=== PATIENT | female | born 1985 | race Caucasian/White ===

== ENCOUNTER 2017-01-15 22:49 | Inpatient (IN) | payer MEDICAID ==
[~2017-01-15 22:49] MED LIST: ANUSOL-HC30 G1 RC; COLACE100 M1 PO; COLACE100 MG PO; DIBUCAINE EXT; DIBUCAINE28.35 GM TP; FERROUS SULFATE1 GM MC; IBUPROFEN600 MG PO; IBUPROFEN800 M1 PO; IRON1 TA1 PO; MILK OF MAGNESIA PO; MOTRIN800 MG PO; OXYCODONE/APAP PO; PRENATAL TABLE1 EAC3 PO; PRENATAL1 EACH PO; PROCTO PAK RC; TUMS200 MG PO; VALTREX500 MG PO
[2017-01-16 00:07] LABS: BASO % 0.1 % (0-2); HCT-HEMATOCRIT 32.9 % (34.0-49.0); HGB-HEMOGLOBIN 11.1 gm/dl (12.0-15.5); IMMATURE GRANULOCYTES ABSOLUTE 0.09 tho/cmm (0-0.03); IMMATURE GRANULOCYTES PERCENT 0.5 % (0-0.3); LYMPH % 8.5 % (20-45); LYMPH ABSOLUTE COUNT 1.5 tho/cmm (0.8-4.5); MCH (MEAN CORPUSCULAR HGB) 30.7 pg (28.0-32.0); MCHC MEAN CORPUSCULAR HGB CONC 33.7 % (32.0-36.0); MCV (MEAN CELL VOLUME) 91.1 fl (82.0-96.0); MONO % 3.8 % (0-12); MONOCYTE ABSOLUTE COUNT 0.7 tho/cmm (0.0-1.2); NEUTROPHIL ABSOLUTE COUNT 15.3 tho/cmm (1.6-8.0); NEUTROPHIL-AUTOMATED 15.3 tho/cmm (1.6-8.0); NEUTROPHILS % 87.1 % (40-80); PLATELET COUNT 247 tho/cmm (150-450); RED BLOOD COUNT 3.61 mil/cmm (4.00-5.20); RED CELL DISTRIBUTION WIDTH 13.2 % (12.4-16.4); WHITE BLOOD COUNT 17.6 tho/cmm (4.0-10.0)
[2017-01-16] MEDS ORDERED: NO HOME MEDICATION XX (05:50)
[2017-01-17 06:01] LABS: BASO % 0.3 % (0-2); EOS % 0.2 % (0-7); HCT-HEMATOCRIT 27.8 % (34.0-49.0); HGB-HEMOGLOBIN 9.4 gm/dl (12.0-15.5); IMMATURE GRANULOCYTES ABSOLUTE 0.08 tho/cmm (0-0.03); IMMATURE GRANULOCYTES PERCENT 0.8 % (0-0.3); LYMPH % 22.3 % (20-45); LYMPH ABSOLUTE COUNT 2.3 tho/cmm (0.8-4.5); MCH (MEAN CORPUSCULAR HGB) 31.2 pg (28.0-32.0); MCHC MEAN CORPUSCULAR HGB CONC 33.8 % (32.0-36.0); MCV (MEAN CELL VOLUME) 92.4 fl (82.0-96.0); MONO % 6.1 % (0-12); MONOCYTE ABSOLUTE COUNT 0.6 tho/cmm (0.0-1.2); NEUTROPHIL ABSOLUTE COUNT 7.1 tho/cmm (1.6-8.0); NEUTROPHIL-AUTOMATED 7.1 tho/cmm (1.6-8.0); NEUTROPHILS % 70.3 % (40-80); PLATELET COUNT 201 tho/cmm (150-450); RED BLOOD COUNT 3.01 mil/cmm (4.00-5.20); RED CELL DISTRIBUTION WIDTH 13.7 % (12.4-16.4); WHITE BLOOD COUNT 10.2 tho/cmm (4.0-10.0)
--- NOTE | 2017-01-17 08:50 | NUR ---
DR RYAN CALLS AND INQUIRES OF PT STATUS AND LAB.
[2017-01-17] MEDS ORDERED: IBUPROFEN800 M1 PO (10:52)
[2017-01-17] MEDS ORDERED: NORCO 5-325 TA1 EACH PO (10:54)
== END 2017-01-17 15:10 | DRG 775 ==
LOC: LDR 22:49 → OBGF 01-16 06:55
PROVIDERS: ADMIT Obstetrics & Gynecology
PROC: 10D07Z6 Extraction of Products of Conception, Vacuum, Via Natural or Artificial Opening (ICD-10-PCS; principal; 2017-01-16)
PROC: 0HQ9XZZ Repair Perineum Skin, External Approach (ICD-10-PCS; 2017-01-16)
DX: O34.211 Maternal care for low transverse scar from previous cesarean delivery (principal); O24.419 Gestational diabetes mellitus in pregnancy, unspecified control; O70.0 First degree perineal laceration during delivery; Z37.0 Single live birth; Z3A.37 37 weeks gestation of pregnancy
CPT/HCPCS: J2590